=== PATIENT | female | born 1955 | race Caucasian/White ===

== ENCOUNTER 2020-06-14 06:34 | Inpatient (IN) | payer BC, SELFPAY ==
[2020-06-14 07:44] LABS: Absolute Lymphocytes (CBC) 1.2 K/uL (0.7-4.9); Basophils % 0.8 % (0-1.3); Hematocrit 43.1 % (36.0-45.0); Lymphocytes % 13.9 % (15.3-44.8); MPV 8.1 fL (7.6-11.3); RBC Red Blood Cell Count 4.45 M/uL (3.86-4.86)
[2020-06-14] MEDS ORDERED: PANTOPRAZOLE INJ 80 MG in NA CHLORIDE 0.9% 250 ML IV ONE (07:45)
[2020-06-14 07:49] LABS: Protime INR 0.88
[2020-06-14] MEDS ORDERED: PANTOPRAZOLE 40 MG INJ ONE (07:56)
[2020-06-14] MEDS ORDERED: HYDROCODONE/CHLORPHEN 5 ML/OSYR ONE (07:56)
[2020-06-14] MEDS ORDERED: ONDANSETRON 4 MG/2 ML VIAL ONE (07:56)
[2020-06-14 08:01] LABS: Albumin 4.2 g/dL (3.4-5.0); Bilirubin Direct 0.4 mg/dL (0-0.2); Bilirubin Total 1.4 mg/dL (0.2-1.0); Potassium 3.6 mmol/L (3.5-5.1); Protein, Total 8.2 g/dL (6.4-8.2); Troponin (Emerg Dept Use Only) 0.03 ng/mL (0.0-0.045)
--- NOTE | 2020-06-14 08:12 | RAD REPORT ---
EXAM DESCRIPTION: CT - Abdomen Pelvis W Contrast - 06/14/2020 7:59 am CLINICAL HISTORY: Abdominal pain COMPARISON: none. TECHNIQUE: Computed axial tomography of the abdomen pelvis was obtained. 100 cc Isovue-300 was admin istered intravenously. Oral contrast was not requested which limits evaluation of bowel. All CT scans are performed using dose optimization technique as appropriate and may include automated exposure control or mA/KV adjustment according to patient size. FINDINGS: Mild hepatomegaly. Mild fatty infiltration. The Spleen, pancreas, adrenal and kidneys appear unremarkable. Diverticula stem from the colon. There is minimal stranding adjacent to the sigmoid colon. Normal guanako endix Small umbilical hernia IMPRESSION: Minimal sigmoid diverticulitis. Mild hepatomegaly
--- NOTE | 2020-06-14 08:36 | ER ---
Nurse's Notes [facility] Name: Karol Rebollar Age: 64 yrs Sex: Female : 1955 Arrival Date: 06/14/2020 Time: 06:40 Bed 14 Private MD: Diagnosis: Hematemesis;Melena Presentation: 06/14 07:19 Chief complaint: Patient states: has been vomiting blood and having black tarry stool iw off and on for two weeks , also has had a cough but states it is from her BP medicine she's been on for past 6 months. Coronavirus screen: Ebola Screen: Patient negative for fever greater than or equal to 101.5 degrees Fahrenheit, and additional compatible Ebola Virus Disease symptoms Patient denies exposure to infectious person. Patient denies travel to an Ebola-affected area in the 21 days before illness onset. No symptoms or risks identified at this time. Initial Sepsis Screen: Does the patient meet any 2 criteria? No. Patient's initial sepsis screen is negative. Does the patient have a suspected source of infection? No. Patient's initial sepsis screen is negative. Risk Assessment: Do you want to hurt yourself or someone else? Patient reports no desire to harm self or others. Onset of symptoms was June 04, 2020. 07:19 Method Of Arrival: Ambulatory iw 07:19 Acuity: TERA 3 iw Triage Assessment: 07:30 General: Appears in no apparent distress. comfortable, Behavior is cooperative, bp appropriate for age, anxious. Pain: Complains of pain in abdomen. EENT: No deficits noted. Neuro: No deficits noted. Cardiovascular: Rhythm is sinus rhythm. Respiratory: No deficits noted. GI: Abdomen is non-distended, Reports vomiting. : No signs and/or symptoms were reported regarding the genitourinary system. Derm: No deficits noted. Musculoskeletal: No deficits noted. Historical: - Allergies: 07:23 Codeine; iw - Home Meds: 07:23 valsartan oral oral once daily [Active]; iw - PMHx: 07:23 Hypertension; iw - PSHx: 07:23 None; iw - Immunization history:: Adult Immunizations not up to date. - Social history:: Smoking status: Patient denies any tobacco usage or history of. - Family history:: not pertinent. - Hospitalizations: : No recent hospitalization is reported. Screenin:00 Abuse screen: Denies threats or abuse. Denies injuries from another. Nutritional bp screening: No deficits noted. Tuberculosis screening: No symptoms or risk factors identified. Fall Risk None identified. Assessment: 07:20 General: SEE TRIAGE NOTE. bp 08:03 Reassessment: PT RETURNED FROM CT. bp 08:03 Reassessment: No changes from previously documented assessment. Patient and/or family bp updated on plan of care and expected duration. Pain level reassessed. Patient is alert, oriented x 3, equal unlabored respirations, skin warm/dry/pink. 09:08 Reassessment: No changes from previously documented assessment. Patient and/or family bp updated on plan of care and expected duration. Pain level reassessed. Patient is alert, oriented x 3, equal unlabored respirations, skin warm/dry/pink. ADMIT IN PROCESS. Vital Signs: 07:19 BP 178 / 90; Pulse 96; Resp 16 S; Temp 97.5; Pulse Ox 98% on R/A; Weight 58.51 kg; iw Height 5 ft. 0 in. (152.40 cm); Pain 3/10; 08:14 BP 166 / 72; Pulse 78; Resp 14; Pulse Ox 96% ; bp 09:09 BP 150 / 75; Pulse 71; Resp 15; Pulse Ox 94% ; bp 10:21 BP 154 / 79; Pulse 69; Resp 14; Pulse Ox 96% on R/A; mh5 11:30 BP 154 / 76; Pulse 66; Resp 14; Pulse Ox 97% ; bp 12:30 BP 166 / 90; Pulse 66; Resp 14; Pulse Ox 99% ; bp 07:19 Body Mass Index 25.19 (58.51 kg, 152.40 cm) iw ED Course: 06:40 Patient arrived in ED. ag3 07:06 Errol Spence MD is Attending Physician. rn 07:15 Johnathan Montgomery, DIGNA is Primary Nurse. bp 07:22 Triage completed. iw 07:22 Arm band placed on. iw 07:30 Inserted saline lock: 20 gauge in right forearm, using aseptic technique. Blood bp collected. 07:58 CT Abd/Pelvis - IV Contrast Only In Process Unspecified. EDMS 08:00 Patient has correct armband on for positive identification. Bed in low position. Call bp light in reach. Side rails up X2. 08:34 Jus Spence MD is Hospitalizing Provider. rn 11:44 No provider procedures requiring assistance completed. Patient admitted, IV remains in bp place. Administered Medications: 07:35 Drug: ProTONIX 40 mg Route: IVP; Site: right forearm; bp 08:20 Follow up: Response: No adverse reaction bp 07:35 Drug: Zofran (Ondansetron) 4 mg Route: IVP; Site: right forearm; bp 08:21 Follow up: Response: No adverse reaction bp 08:15 Drug: ProTONIX 8 mg/hr Route: IV; Rate: 25 ml/hr; Site: right forearm; bp 12:55 Follow up: IV Status: Infusion continued upon admission bp Outcome: 08:35 Decision to Hospitalize by Provider. rn 12:54 Admitted to Med/surg accompanied by tech, via wheelchair, room 219, with chart, Report bp called to DAMIEN SAWYER 12:54 Condition: stable 12:54 Instructed on the need for admit. 13:21 Patient left the ED. iw Signatures: Dispatcher [employer] Joelle Pak, Errol Devi RN, MD MD rn Martinez, Maria [facility] Johnathan Montgomery RN RN bp Gomez, Alice 3
--- NOTE | 2020-06-14 08:36 | EDPHYS ---
Physician Documentation [facility] Name: Karol Rebollar Age: 64 yrs Sex: Female : 1955 Arrival Date: 06/14/2020 Time: 06:40 Bed 14 Private MD: ED Physician Errol Spence HPI: 06/14 07:16 This 64 yrs old Female presents to ER via Unassigned with complaints of rn Vomiting BLOOD. 07:16 The patient presents to the emergency department vomiting blood, a moderate amount, rn bright red, with multiple such episodes, with rectal bleeding, a small amount, melena, with multiple such episodes. Onset: The symptoms/episode began/occurred 2 week(s) ago. Abdominal pain: described as achy, located in the epigastric area, that does not radiate. Modifying factors: The symptoms are alleviated by nothing, the symptoms are aggravated by nothing. Associated signs and symptoms: Pertinent positives: dizziness when standing, Pertinent negatives: chest pain, fever. Severity of symptoms: At their worst the symptoms were mild in the emergency department the symptoms are unchanged. The patient has not experienced similar symptoms in the past. The patient has not recently seen a physician. Reports 2 weeks intermittent hematemesis, bright red blood, no hematemesis for last 2 days, but persistent dark black stool for 2 weeks. No hx of gastric ulcer or bleeding. Not on blood thinners. No trauma. . Historical: - Allergies: 07:23 Codeine; iw - Home Meds: 07:23 valsartan oral oral once daily [Active]; iw - PMHx: 07:23 Hypertension; iw - PSHx: 07:23 None; iw - Immunization history:: Adult Immunizations not up to date. - Social history:: Smoking status: Patient denies any tobacco usage or history of. - Family history:: not pertinent. - Hospitalizations: : No recent hospitalization is reported. ROS: 07:16 Constitutional: Negative for fever, chills, and weight loss, Eyes: Negative for injury, rn pain, redness, and discharge, Neck: Negative for injury, pain, and swelling, Cardiovascular: Negative for chest pain, palpitations, and edema, Respiratory: + cough, neg for sob Abdomen/GI: + upper abd pain, + nausea with intermittent hematemesis, + dark black stool Back: Negative for injury and pain, MS/Extremity: Negative for injury and deformity, Skin: Negative for injury, rash, and discoloration, Neuro: Negative for headache, numbness, tingling, and seizure. Exam: 07:16 Constitutional: This is a well developed, well nourished patient who is awake, alert, rn and in no acute distress. Ambulatory to room without difficulty or distress Head/Face: Normocephalic, atraumatic. Eyes: Pupils equal round and reactive to light, extra-ocular motions intact. Cardiovascular: Regular rate. No pulse deficits. Respiratory: No increased work of breathing, no retractions or nasal flaring. Abdomen/GI: soft, mild epigastric tenderness, no rebound Skin: Warm, dry MS/ Extremity: Pulses equal, no cyanosis. Neurovascular intact. Full, normal range of motion. Equal circumference. Neuro: Awake and alert, GCS 15, oriented to person, place, time, and situation. Cranial nerves II-XII grossly intact. Motor strength 5/5 in all extremities. Sensory grossly intact. 08:01 ECG was reviewed by the Attending Physician. rn Vital Signs: 07:19 BP 178 / 90; Pulse 96; Resp 16 S; Temp 97.5; Pulse Ox 98% on R/A; Weight 58.51 kg; iw Height 5 ft. 0 in. (152.40 cm); Pain 3/10; 08:14 BP 166 / 72; Pulse 78; Resp 14; Pulse Ox 96% ; bp 09:09 BP 150 / 75; Pulse 71; Resp 15; Pulse Ox 94% ; bp 10:21 BP 154 / 79; Pulse 69; Resp 14; Pulse Ox 96% on R/A; mh5 11:30 BP 154 / 76; Pulse 66; Resp 14; Pulse Ox 97% ; bp 12:30 BP 166 / 90; Pulse 66; Resp 14; Pulse Ox 99% ; bp 07:19 Body Mass Index 25.19 (58.51 kg, 152.40 cm) iw MDM: 07:06 Patient medically screened. rn 08:33 Differential diagnosis: gastritis, gastric ulcer. Data reviewed: vital signs, nurses rn notes, lab test result(s), radiologic studies, CT scan, and as a result, I will admit patient. Counseling: I had a detailed discussion with the patient and/or guardian regarding: the historical points, exam findings, and any diagnostic results supporting the discharge/admit diagnosis, lab results, radiology results, the need for further work-up and treatment in the hospital. Response to treatment: the patient's symptoms have mildly improved after treatment, and as a result, I will admit patient. Admission orders: after a detailed discussion of the patient's condition and case, the admit orders are written by me. ED course: Pt with stable vitals and normal h/h, possibly contracted, continues to have melena, last episode in lobby, feels weak and dizzy, will admit to Dr. Spence for GI consult and scope as has been bleeding for 2 weeks and not stopped yet. . 06/14 07:15 Order name: Basic Metabolic Panel; Complete Time: 08:14 rn 06/14 07:15 Order name: CBC with Diff; Complete Time: 07:57 rn 06/14 07:15 Order name: Hepatic Function; Complete Time: 08:14 rn 06/14 07:15 Order name: Lipase; Complete Time: 08:14 rn 06/14 07:15 Order name: Protime (+inr); Complete Time: 07:57 rn 06/14 07:15 Order name: Ptt, Activated; Complete Time: 07:57 rn 06/14 07:15 Order name: Troponin (emerg Dept Use Only); Complete Time: 08:14 rn 06/14 07:15 Order name: Type And Screen rn 06/14 08:34 Order name: COVID-19 : Document "Date of Symptom Onset" if Symptomatic. eb 06/14 09:35 Order name: CBC with Automated Diff EDMS 06/14 09:35 Order name: CBC with Automated Diff EDMS 06/14 10:17 Order name: SARS-COV-2 RT PCR EDMS 06/14 11:34 Order name: ABO/RH no charge EDMS 06/14 07:15 Order name: IV Saline Lock; Complete Time: 07:33 rn 06/14 07:15 Order name: Labs collected and sent; Complete Time: 07:33 rn 06/14 07:15 Order name: CT Abd/Pelvis - IV Contrast Only; Complete Time: 08:14 rn 06/14 07:15 Order name: EKG; Complete Time: 07:16 rn 06/14 07:15 Order name: EKG - Nurse/Tech; Complete Time: 07:32 rn 06/14 07:40 Order name: Labs - recollect needed: recollect T\\T\\S/ ink on label smeared; Complete eb Time: 08:21 06/14 09:34 Order name: CONS Physician Consult EDLA 06/14 09:35 Order name: NPO EDLA 06/14 09:40 Order name: EN ENDOSCOPY REQUEST EDLA EC:01 Rate is 82 beats/min. Rhythm is regular. QRS [place] is Normal. [place] interval is normal. QRS rn interval is normal. QT interval is normal. No Q waves. T waves are Normal. No ST changes noted. Clinical impression: Normal ECG. Interpreted by me. Reviewed by me. Administered Medications: 07:35 Drug: ProTONIX 40 mg Route: IVP; Site: right forearm; bp 08:20 Follow up: Response: No adverse reaction bp 07:35 Drug: Zofran (Ondansetron) 4 mg Route: IVP; Site: right forearm; bp 08:21 Follow up: Response: No adverse reaction bp 08:15 Drug: ProTONIX 8 mg/hr Route: IV; Rate: 25 ml/hr; Site: right forearm; bp 12:55 Follow up: IV Status: Infusion continued upon admission bp Disposition: 06/14/20 08:35 Hospitalization ordered by Jus Spence for Observation. Preliminary diagnosis are Hematemesis, Melena. - Bed requested for Telemetry/MedSurg (observation). - Status is Observation. iw - Condition is Stable. - Problem is new. - Symptoms have improved. Signatures: Dispatcher [employer] EDLA Debora Salazar RN RN dw Williams, Irene, RN RN Errol Spence MD MD rn Peltier, Brian, RN RN bp Botello, Elizabeth Corrections: (The following items were deleted from the chart) 09:21 08:35 CORONAVIRUS ordered. EDLA EDLA 11:36 08:35 Hospitalization Ordered by Jus Spence MD for Observation. Preliminary dw diagnosis is Hematemesis; Melena. Bed requested for Telemetry/MedSurg (observation). Status is Observation. Condition is Stable. Problem is new. Symptoms have improved. rn 13:21 11:36 06/14/2020 08:35 Hospitalization Ordered by Jus Spence MD for Observation. iw Preliminary diagnosis is Hematemesis; Melena. Bed requested for Telemetry/MedSurg (observation). Status is Observation. Condition is Stable. Problem is new. Symptoms have improved. dw
--- NOTE | 2020-06-14 09:38 | P.HP ---
Certification for Inpatient Patient admitted to: Inpatient With expected LOS: >2 Midnights Practitioner: I am a practitioner with admitting privileges, knowledge of patient current condition, hospital course, and medical plan of care. Services: Services provided to patient in accordance with Admission requirements found in Title 42 Section 412.3 of the Code of Federal Regulations Patient History Date of Service: 06/14/20 Reason for admission: Dark Tarry emesis/stool x 2 weeks History of Present Illness: 64-year-old F, PMH: HTN, presents to the ED due to 2 weeks of slowly pr ogressively worsening darker black/tarry emesis and bowel movements. The patient reports associated lower abdominal cramping intermittently over the past 2 weeks as well. She has only been able to keep the minimal amount of p.o. intake. She states she vomits after eating. She denies any recent sick contacts, that this has never happened before. She last had a colonoscopy 12 years ago and which was reportedly okay. She does not take aspirin, NSAID, any other blood thinners. She denies any smoking history. She does take some herbal supplements-Fish oil, multivitamin. She denies any history of acid reflux, no metallic or battery taste in her mouth. Nothing has seemed to help/worsen the change in stool / emesis color. Labwork in the ED notable for hemoglobin: 14.3, no leukocytosis, GFR: 77, total bilirubin: 1.4. COVID negative. CT abdomen/pelvis concerning for "Minimal sigmoid diverticulitis" and mild hepatomegaly. Allergies codeine Allergy (Verified 06/14/20 13:17) UNK Home Medications: Valsartan [Diovan] 40 mg PO DAILY 06/14/20 - Past Medical/Surgical History -: Hypertension Past Surgical History: Patient denies surgical history - Family History Father -: Heart disease Mother -: Heart disease - Social History Smoking Status: Never smoker Alcohol use: Yes Place of Residence: Home Review of Systems 10-point ROS is otherwise unremarkable Physical Examination - Physical Exam General: Alert, In no apparent distress, Oriented x3 HEENT: Sclerae nonicteric Neck: Supple Respiratory: Clear to auscultation bilaterally, Normal air movement Cardiovascular: No edema, Regular rate/rhythm Gastrointestinal: Soft and benign, Non-distended, Tenderness (mild at LLQ) Musculoskeletal: No tenderness Integumentary: No rashes, No breakdown Neurological: Normal speech, Normal strength at 5/5 x4 extr, Normal affect - Studies Laboratory Data (last 24 hrs) 06/14/20 07:30: PT 10.1, INR 0.88, APTT 27.4 06/14/20 07:30: WBC 8.50, Hgb 14.3, Hct 43.1, Plt Count 277 06/14/20 07:30: Sodium 139, Potassium 3.6, BUN 11, Creatinine 0.76, Glucose 120 H, Total Bilirubin 1.4 H, AST 81 H, ALT 100 H, Alkaline Phosphatase 85, Lipase 61 L Assessment and Plan - Advance Directives Does patient have a Living Will: No Does patient have a Durable POA for Healthcare: No Physician Review Additional Text: Problem List: Hematemesis / Melena x 2 weeks nausea/vomiting HTN -will bring patient in to hospital given ongoing dark tarry emesis and stool for 2 weeks with minimal PO intake -Hgb not significantly decreased, patient does appear dry on exam -continue Protonix drip, gentle IV fluid hydration -GI consulted, for possibly EGD today, keep NPO -SCDs for DVT prophylaxis VTE: SCDs given GI bleed Code: DNR per patient Dispo: anticipate dc home in 24-48hrs - pending c-scope findings and stable Hgb Time Spent Managing Pts Care (In Minutes): 60
[2020-06-14] MEDS: Levofloxacin 750mg IV 750 MG/150 ML BAG IV SCH ×2 (10:00→13:49)
[2020-06-14] MEDS: NA CHLORIDE 0.9% 1,000 ML IV SCH ×3 (10:00→23:20)
[2020-06-14 11:38] VITALS: O2SAT 97
--- NOTE | 2020-06-14 12:28 | EKG ---
Test Date: 2020-06-14 Test Time: 07:31:59 Receiving Dock Checker: [place] MEASUREMENT RESULTS: Intervals: Rate: 82 HI: 154 QRSD: 76 QT: 406 QTc: 474 [place]: P: 57 HI: 154 QRS: 11 T: 26 INTERPRETIVE STATEMENTS: Normal sinus rhythm Normal ECG No previous ECG available for comparison Electronically Signed On 06-14-20 12:27:41 ASSISTANT KITCHEN MANAGER by Terell Houston
[2020-06-14 13:28] VITALS: BMI 3627.5
[2020-06-14] MEDS ORDERED: HYDRALAZINE HCL 20 MG/ML VIAL IV PRN (15:42)
[2020-06-14] MEDS ORDERED: METRONIDAZOLE 500mg IVPB 500 MG/100 ML BAG IV SCH (17:00)
[2020-06-14] MEDS: PANTOPRAZOLE INJ 80 MG in NA CHLORIDE 0.9% 250 ML IV SCH (18:03)
[2020-06-14] MEDS ORDERED: ONDANSETRON 4 MG/2 ML VIAL IV PRN (20:27)
[2020-06-15] MEDS: PIPER/TAZO/NS 3.375gm 3.375 GM/100 ML BAG IVPB SCH ×3 (00:49→17:00)
[2020-06-15] MEDS: PANTOPRAZOLE INJ 80 MG in NA CHLORIDE 0.9% 250 ML IV SCH (05:11)
[2020-06-15 05:59] LABS: Absolute Lymphocytes (CBC) 1.1 K/uL (0.7-4.9); Basophils % 0.4 % (0-1.3); Hematocrit 37.4 % (36.0-45.0); Lymphocytes % 18.3 % (15.3-44.8); RBC Red Blood Cell Count 3.86 M/uL (3.86-4.86)
[2020-06-15 06:12] LABS: Albumin 3.6 g/dL (3.4-5.0); Bilirubin Total 1.5 mg/dL (0.2-1.0); Magnesium 1.8 mg/dL (1.8-2.4); Potassium 3.2 mmol/L (3.5-5.1); Protein, Total 6.7 g/dL (6.4-8.2)
[2020-06-15] MEDS ORDERED: LIDOCAINE 1% MPF 5 ML VIAL ONE (11:30)
[2020-06-15] MEDS ORDERED: propofoL 200 MG/20 ML VIAL IV ONE (11:30)
--- NOTE | 2020-06-15 11:54 | ENDO RPT ---
[address], [address] EGD PROCEDURE REPORT EXAM DATE: 06/15/2020 PATIENT NAME: Karol Rebollar MR#: [id number] BIRTHDATE: 1955 ATTENDING: Sterling Soliz Dr STATUS: inpatient - 7 INTERPRETER DEAF: Yin Dominguez RN, Daiana Ch RN, and Erin Rodriguez CST INDICATIONS: The patient is a 64 yr old Female here for an EGD due to melenic bleeding, mid epigastric abdominal pain, and nausea and vomiting PROCEDURE PERFORMED: EGD with biopsy MEDICATIONS: Per Anesthesia. TOPICAL ANESTHETIC: none CONSENT: The patient understands the risks and benefits of the procedure and understands that these risks include, but are not limited to: sedation, allergic reaction, infection, perforation and/or bleeding. Alternative means of evaluation and treatment include, among others: physical exam, x-rays, and/or surgical intervention. The patient elects to proceed with this endoscopic procedure. DESCRIPTION OF PROCEDURE: During intra-op preparation period all mechanical medical equipment was checked for proper function. Hand hygiene and appropriate measures for infection prevention was taken. Procedure, possible complications, and alternatives including but not limited to the possibility of bleeding, perforation, tear, infection, sepsis, need for surgery, need for blood transfusion, and anesthesia related complications were explained to the patient. After the risks, benefits and alternatives of the procedure were thoroughly explained, Informed consent was verified, confirmed and timeout was successfully executed by the treatment team. The patient was placed in the left lateral position. The patient was anesthetized with topical anesthesia. Through the anesthetized oropharyngeal area, the scope was passed without any difficulty. The EG-[id number] ([id number]) endoscope was introduced through the mouth and advanced to the third portion of the duodenum. Retroflexed views revealed a small hiatal hernia. The gastroscope was then slowly withdrawn and removed. LA Class A esophagitis was found in the lower esophagus. A small hiatal hernia was found Mild gastritis was found in the total stomach. Multiple biopsies were obtained and sent to pathology. ADVERSE EVENTS: There were no complications. IMPRESSIONS: 1. LA class A esophagitis in the lower esophagus 2. Small hiatal hernia 3. Mild gastritis in the total stomach, s/p biopsies RECOMMENDATIONS: 1. await biopsy results 2. acid suppression therapy REPEAT EXAM: Sterling Soliz Dr eSigned: Sterling Soliz Dr 06/15/2020 11:53 AM cc: CPT CODES: ICD9 CODES: PATIENT NAME: Keturah Karol B. MR#: [id number]
--- NOTE | 2020-06-15 12:49 | P.PN ---
Subjective Date of Service: 06/15/20 Chief Complaint: Dark Tarry emesis/stool x 2 weeks Subjective: Other (did not tolerate PO yesterday, has been NPO, on IVF, no further black tarry emesis or stool. For EGD today. Still with lower abdominal soreness/cramping) Review of Systems 10-point ROS is otherwise unremarkable Physical Examination - Vital Signs Temperature: 98.6 F Blood Pressure: 158/68 Pulse: 69 Respirations: 18 Pulse Ox (%): 98 Assessment & Plan Physician Review Additional Text: Physical Exam: Gen: NAD HEENT: normal conjunctiva, sclera anicteric CV: RRR, no edema Pulm: CTAB, no wheeze Abd: soft, moderate TTP in epigastrium, no rebound Ext: no edema, no rash Problem List: Hematemesis / Melena x 2 weeks nausea/vomiting HTN -Hgb slightly down today 14 -> 12, has received some IVF -continue Protonix drip, gentle IV fluid hydration -GI consulted, for EGD today, keep NPO -SCDs for DVT prophylaxis -had redness/burning pain of arm due to flagyl, changed abx to zosyn for now - for sigmoid diverticulitis noted on CT VTE: SCDs given GI bleed Code: DNR per patient Dispo: anticipate dc home in 24-48hrs - pending c-scope findings and stable Hgb, and tolerating PO Time Spent Managing Pts Care (In Minutes): 35
--- NOTE | 2020-06-15 20:34 | P.DS ---
Admission Date: 06/14/20 Discharge Date: 06/15/20 Disposition: ROUTINE DISCHARGE Discharge Condition: GOOD Reason for Admission: Dark Tarry emesis/stool x 2 weeks Consultations: GI - Dr. Soliz Procedures: CT Abd/Pelvis (06/14): Minimal sigmoid diverticulitis. Mild hepatomegaly EGD (06/15) by Dr. Soliz - final report unavailable at time of discharge. Reportedly notable for esophagitis and gastritis, with hiatal hernia. Problem List: Esophagitis, Gastritis Hiatal hernia Dark tarry emesis and stool x 2 weeks nausea/vomiting HTN Brief History of Present Illness: 64-year-old F, PMH: HTN, presents to the ED due to 2 weeks of slowly progressively worsening darker black/tarry emesis and bowel movements. The patient reports associated lower abdominal cramping intermittently over the past 2 weeks as well. She has only been able to keep the minimal amount of p.o. intake. She states she vomits after eating. She denies any recent sick contacts, that this has never happened before. She last had a colonoscopy 12 years ago and which was reportedly okay. She does not take aspirin, NSAID, any other blood thinners. She denies any smoking history. She does take some herbal supplements-Fish oil, multivitamin. She denies any history of acid reflux, no metallic or battery taste in her mouth. Nothing has seemed to help/worsen the change in stool / emesis color. Labwork in the ED notable for hemoglobin: 14.3, no leukocytosis, GFR: 77, total bilirubin: 1.4. COVID negative. CT abdomen/pelvis concerning for "Minimal sigmoid diverticulitis" and mild hepatomegaly. Hospital Course: Patient was admitted and started on IV Protonix drip and IVF. GI was consulted and took patient for EGD. Esophagitis and gastritis was noted. Recommended treatment for prilosec and pepcid. Her CT abd/pelvis was notable for mild sigmoid diverticulitis. She was initially treated with levaquin and flagyl, however she reported feeling warm and flushed shortly after starting IV flagyl. She was switched to Zosyn. She tolerated lunch and dinner without any nausea/vomiting or pain. She did not have any black tarry emesis/stool during her hospitalization. She reported feeling well and wanted to be discharged home with 7 days of Augmentin. She is to follow up with GI in the next few weeks. Vital Signs/Physical Exam: Physical Exam: Gen: NAD HEENT: normal conjunctiva, sclera anicteric CV: RRR, no edema Pulm: CTAB, no wheeze Abd: soft, minimal TTP in epigastrium, no rebound, non-distended Ext: no edema, no rash Temp Pulse Resp BP Pulse Ox 97.3 F 69 16 170/73 H 96 06/15/20 16:00 06/15/20 16:00 06/15/20 16:00 06/15/20 16:00 06/15/20 16:00 Laboratory Data at Discharge: WBC 6.20 K/uL (4.3-10.9) D 06/15/20 05:40 Hgb 12.5 g/dL (12.0-15.0) 06/15/20 05:40 Hct 37.4 % (36.0-45.0) 06/15/20 05:40 Plt Count 215 K/uL (152-406) D 06/15/20 05:40 PT 10.1 SECONDS (9.5-12.5) 06/14/20 07:30 INR 0.88 06/14/20 07:30 APTT 27.4 SECONDS (24.3-36.9) 06/14/20 07:30 Sodium 141 mmol/L (136-145) 06/15/20 05:40 Potassium 3.2 mmol/L (3.5-5.1) L 06/15/20 05:40 BUN 10 mg/dL (7-18) 06/15/20 05:40 Creatinine 0.84 mg/dL (0.55-1.3) 06/15/20 05:40 Glucose 122 mg/dL (74-106) H 06/15/20 05:40 Magnesium 1.8 mg/dL (1.8-2.4) 06/15/20 05:40 Total Bilirubin 1.5 mg/dL (0.2-1.0) H 06/15/20 05:40 AST 48 U/L (15-37) H 06/15/20 05:40 ALT 74 U/L (12-78) 06/15/20 05:40 Alkaline Phosphatase 63 U/L (45-117) 06/15/20 05:40 Lipase 61 U/L (73-393) L 06/14/20 07:30 Home Medications: RX: Valsartan [Diovan*] 40 mg PO DAILY 06/14/20 Amoxicillin/Potassium Clav [Augmentin 875-125 Tablet] 1 each PO BID 5 Days #10 tablet 06/15/20 Famotidine [Pepcid] 40 mg PO BEDTIME 30 Days #30 tablet 06/15/20 Omeprazole [Prilosec] 40 mg PO DAILY 30 Days #30 capsule. 06/15/20 New Medications: Amoxicillin/Potassium Clav [Augmentin 875-125 Tablet] 1 each PO BID 5 Days #10 tablet Famotidine [Pepcid] 40 mg PO BEDTIME 30 Days #30 tablet Omeprazole [Prilosec] 40 mg PO DAILY 30 Days #30 capsule. Diet: Regular (bland) Activity: Ad chip Followup: Sterling Soliz MD [ASSOCIATE-ACTIVE - CAN ADMIT] - Unknown,U [Primary Care Provider] - Time spent managing pt's care (in minutes): 40
[2020-06-16 10:04] VITALS: BP 170/73; TEMP 97.3
--- NOTE | 2020-06-26 21:25 | CON ---
Date of Consultation: 06/15/2020 Reason For Consultation: Melena, coffee-ground emesis x2 weeks, midepigastric pain. History Of Present Illness: This patient is a 64-year-old white female with history of hypertension. The patient presented to the hospital with coffee-ground emesis and melena for the past 2 weeks. T he patient also reports midepigastric pain over the past 2 months with maximal pain of 3/10, now none . She has also had some nausea and vomiting over the past [address] scan revealed mild si gmoid diverticulitis, otherwise negative. Past Medical History: Positive for hypertension. Home Medications: Include valsartan. Allergies: NKDA. Social History: She is a . Four children. No tobacco. Positive alcohol, wine and mixed drink s. Family History: Father is alive with hypertension. Mother is alive with hypertension. Review of Systems: The patient has melena, coffee-ground emesis, nausea, vomiting, midepigastric pain. She denies any h ematochezia, hematemesis, hemoptysis, hematuria, dysuria, polyuria, polydipsia, chest pain, shortness of breath, seizure, syncope, lower extremity edema, muscle aches, joint aches, backaches, depression , or anxiety. Physical Examination: VITAL SIGNS: She is 5 feet, 129 pounds, BMI is probably 20. Temperature 97.5 degrees Fahrenheit, pu lse 69, respirations 16, blood pressure 154/70, O2 saturation 95%. HEENT: Normocephalic, atraumatic. Anicteric. Pupils equal, round, and reactive to light. Extraocu lar movements intact. Oropharynx is clear. Neck: Supple. No masses. Respirations: Clear to auscultation bilaterally. Cardiac: Regular rate and rhythm. No gallops or rubs. Gastrointestinal: Positive bowel sounds. Soft. She had some midepigastric pain, otherwise nondiste nded. No hepatosplenomegaly. No rebound. No peritoneal or Howell sign. Extremities: No clubbing, cyanosis, or edema. 2+ pulses. Neurologic: Alert and oriented x3. Grossly nonfocal. 5/5 motor sensation intact to light touch. Laboratory Data: The patient has a white count of 6.2, hemoglobin of 12.5, hematocrit 37.4, MCV of 9 7, platelet count 215, polys of 72%, lymphocytes 18%, monocytes 8%, and eosinophils 1%. PT of 10.1, INR of 0.9, PTT of 27.4. Sodium 141, potassium 3.2, chloride 101, bicarb 29, BUN of 10, creatinine o f 0.84, glucose 122, calcium 8.7, magnesium 1.8, total bilirubin 1.5, AST of 40, ALT of 74, alkaline phosphatase 63, total protein 6.7, albumin 3.6, globulin 3.1. COVID testing was negative. CT abdome n and pelvis revealed mild sigmoid diverticulitis with mild hepatomegaly. Impression: 1.Melena, coffee-ground emesis x2 weeks with hemoglobin normal at 12.5, MCV of 97, normal. We need to investigate with esophagogastroduodenoscopy. 2.Midepigastric pain in past 2 months with nausea, vomiting over past 2 weeks. We need to investiga te with esophagogastroduodenoscopy. 3.Diverticulitis of sigmoid colon, that is mild on CT abdomen and pelvis. We need to treat with IV antibiotics and monitor. 4.History of hypertension. Recommendation: 1.EGD. 2.PPI therapy. 3.Serial H and H, and transfuse. 4.Continue IV fluids and IV antibiotics. 5.Continue p.r.n. pain medications and antiemetics. 6.Outpatient colonoscopy in approximately 6 to 8 weeks due to diverticulitis noted on CT scan of abd omen and pelvis. FRANCY/EFRAIN Voice ID: [id number] Report ID: [id number]
== END 2020-06-15 18:30 | disposition home or self-care (01) | DRG 368 ==
LOC: ER 06:34 → ERHOLD 09:33 → 2ND 12:50
PROVIDERS: ADMIT Hospitalist; ATTEND Hospitalist
PROC: 0DB68ZX Excision of Stomach, Via Natural or Artificial Opening Endoscopic, Diagnostic (ICD-10-PCS; principal; 2020-06-15 10:45)
DX: K20.91 Esophagitis, unspecified with bleeding (principal); K29.71 Gastritis, unspecified, with bleeding; K57.32 Diverticulitis of large intestine without perforation or abscess without bleeding; I10 Essential (primary) hypertension; K44.9 Diaphragmatic hernia without obstruction or gangrene; Z79.899 Other long term (current) drug therapy; Z88.5 Allergy status to narcotic agent; Z20.822 Contact with and (suspected) exposure to COVID-19
CPT/HCPCS: 36415; 74177; 80048; 80053; 80076; 82565; 83690; 83735; 84145; 84484; 85025; 85610; 85730; 86850; 86900; 86901; 88305; 88312; 93005; 94760; 96365; 96366; 96375; 99285; C9113; J0360; J2405; J2543; J2704; J7030; J7050; Q9967; U0003